=== PATIENT | female | born 1995 | race Caucasian/White ===

== ENCOUNTER 2017-09-22 13:23 | Emergency (ER) | payer SELFPAY ==
[~2017-09-22] VITALS: Ht 160 cm; Wt 77.3 kg
[~2017-09-22 13:23] MED LIST: TOPI100 PO
[2017-09-22] MEDS ORDERED: SODIUM CHLOR 0.9% 1000 ML INJ 1,000 ML IV ONE (15:09)
[2017-09-22 15:12] VITALS: BP 118/65; PULSE 71; RESP 18; TEMP 97.9; O2SAT 98
--- NOTE | 2017-09-22 15:13 | PD ---
HPI Chief Complaint: Headache Time Seen by Provider: 15:05 Travel History International Travel<30 days: No Contact w/Intl Traveler<30days: No Traveled to known affect area: No History of Present Illness HPI 22-year-old female presents the emergency department with 3 day history of migraine symptoms. Patient states history of migraines in the past, for which she saw a neurologist and was taking Topamax that the milligrams twice a day. Patient states that she's not had insurance for some time she has not taken any meds other than [id number] ibuprofen and Tylenol without relief. Patient states her migraines are cyclic but did not seem to be related to her menstrual cycle. She denies fever, chills, or other symptoms. Pain today is 9 out of 10 on the right upper anterior head. She has photophobia and phonophobia currently. She has had nausea and vomiting last several days. She has no other symptoms. She is allergic to ceftriaxone. PFSH Past Medical History Diminished Hearing: No Genitourinary: Yes (hx of uti's) Immunizations Current: No ?: Not LMP: 09/15/2017 Menopausal: No : 0 Past Surgical History Other Surgery: Yes (WISDOM TEETH) Social History Alcohol Use: No Tobacco Use: No Substance Use: No Allergies-Medications (Allergen,Severity, Reaction): Coded Allergies: ceftriaxone (Unverified Allergy, Severe, hives all over, 05/05/17) Reported Meds & Prescriptions Reported Meds & Active Scripts Active Reported Topamax (Topiramate) 100 Mg Tab 100 Mg PO DAILY Review of Systems Except as stated in HPI: all other systems reviewed are Neg General / Constitutional: No: Fever Eyes: Positive: Photophobia, No: Diploplia, Blurred Vision, Drainage, Redness, Foreign Body Sensation, Pain, Tearing, Blind Spots, Visual changes, Blindness HENT: Positive: Headaches, No: Vertigo, Lightheadedness, Sore Throat, Rhinitis , Rhinorrhea, Congestion, Nosebleed, Neck Stiffness, Neck Pain, Dental Difficulties, Earache Cardiovascular: No: Chest Pain or Discomfort Respiratory: No: Shortness of Breath Gastrointestinal: Positive: Nausea, Vomiting, No: Diarrhea, Abdominal Pain Genitourinary: No: Dysuria Musculoskeletal: No: Pain Skin: No Rash Neurologic: No: Weakness Psychiatric: No: Depression Endocrine: No: Polydipsia Hematologic/Lymphatic: No: Easy Bruising Physical Exam Narrative GENERAL: Patient appears in mild distress. SKIN: Warm and dry. Normal color. Normal turgor. HEAD: Atraumatic. Normocephalic. No reproducible sinus tenderness at this time. EYES: Pupils equal and round. No scleral icterus. No injection or drainage. ENT: No nasal bleeding or discharge. Mucous membranes pink and moist. TMs are clear bilaterally. Pharynx is clear. Airway is patent. NECK: Trachea midline. Supple and nontender. CARDIOVASCULAR: Regular rate and rhythm. RESPIRATORY: No accessory muscle use. Clear to auscultation. Breath sounds equal bilaterally. GASTROINTESTINAL: Abdomen soft, non-tender, nondistended. Hepatic and splenic margins not palpable. MUSCULOSKELETAL: Extremities without clubbing, cyanosis, or edema. No obvious deformities. NEUROLOGICAL: Awake and alert. No obvious cranial nerve deficits. Motor grossly within normal limits. Five out of 5 muscle strength in the arms and legs. Normal speech. PSYCHIATRIC: Appropriate mood and affect; insight and judgment normal. Data Data Last Documented VS Vital Signs Date Time Temp Pulse Resp B/P (MAP) Pulse Ox O2 Delivery O2 Flow Rate FiO2 09/22/17 15:44 98 Room Air 09/22/17 15:12 97.9 71 18 Orders Orders Ecg Monitoring (09/22/17 15:09) Iv Access Insert/Monitor (09/22/17 15:09) Oximetry (09/22/17 15:09) Sodium Chloride 0.9% Flush (Ns Flush) (09/22/17 15:15) Ketorolac Inj (Toradol Inj) (09/22/17 15:15) Prochlorperazine Inj (Compazine Inj) (09/22/17 15:15) Sodium Chlor 0.9% 1000 Ml Inj (Ns 1000 M (09/22/17 15:09) Diphenhydramine Inj (Benadryl Inj) (09/22/17 15:15) MDM Medical Decision Making Medical Screen Exam Complete: Yes Emergency Medical Condition: Yes Medical Record Reviewed: Yes Differential Diagnosis Migraine headache. Headache. Nausea. Narrative Course Patient is felt to be medically stable at time of exam. Radiographic imaging is not felt warranted based on my history and physical. IV access is obtained patient is given 30 mg Toradol IV as well as 25 mg Benadryl IV, and 5 mg Compazine IV. Patient is given 1000 mL normal saline bolus. Patient is improved after the above treatment plan. Patient is given a prescription for topiramate 50 mg twice a day #60. Patient also given Zofran 4 mg every 6 hours when necessary #12. Patient follow with [facility] for further evaluation and treatment as needed. Diagnosis Primary Impression: Migraine Qualified Codes: G43.C0 - Periodic headache syndromes in child or adult, not intractable Referrals: [facility] Patient Instructions: Acute Headache (ED), General Instructions Additional Instructions: Radiographic imaging is not felt warranted based on my history and physical. IV access is obtained patient is given 30 mg Toradol IV as well as 25 mg Benadryl IV, and 5 mg Compazine IV. Patient is given 1000 mL normal saline bolus. Patient is improved after the above treatment plan. Patient is given a prescription for topiramate 50 mg twice a day #60. Patient also given Zofran 4 mg every 6 hours when necessary #12. Patient follow with [place] [facility] for further evaluation and treatment as needed. Med/Other Pt SpecificInfo: Prescription(s) given Scripts Ondansetron (Zofran) 4 Mg Tab 4 MG PO Q6HR Y for NAUSEA OR VOMITING, #12 TAB 0 Refills Prov: Nunu Shay MD 09/22/17 Topiramate (Topiramate) 50 Mg Tab 50 MG PO BID for Control Seizures, #60 TAB 0 Refills Prov: Nunu Shay MD 09/22/17 Disposition: 01 DISCHARGE HOME Condition: Stable Lucio Mooney Sep 22, 2017 15:13
[2017-09-22] MEDS ORDERED: diphenhydrAMINE HCL 50 MG/ML VIAL IV PUSH ONE (15:15)
[2017-09-22] MEDS ORDERED: SODIUM CHLORIDE 0.9% FLUSH 10 ML FLUSH IVF PRN (15:15)
[2017-09-22] MEDS ORDERED: PROCHLORPERAZINE INJ 10 MG/2 ML VIAL IVP ONE (15:15)
[2017-09-22] MEDS ORDERED: KETOROLAC TROMETHAMINE 30 MG/ML (IVP) VIAL IVP ONE (15:15)
[2017-09-22 15:44] VITALS: O2SAT 98
[2017-09-22] MEDS ORDERED: TOPI50TA7 PO (15:51)
[2017-09-22] MEDS ORDERED: ZOFR4TAB PO (15:51)
--- NOTE | 2017-09-22 16:32 | PD ---
Data Data Last Documented VS Vital Signs Date Time Temp Pulse Resp B/P (MAP) Pulse Ox O2 Delivery O2 Flow Rate FiO2 09/22/17 15:44 98 Room Air 09/22/17 15:12 97.9 71 18 Orders Orders Ecg Monitoring (09/22/17 15:09) Iv Access Insert/Monitor (09/22/17 15:09) Oximetry (09/22/17 15:09) Sodium Chloride 0.9% Flush (Ns Flush) (09/22/17 15:15) Ketorolac Inj (Toradol Inj) (09/22/17 15:15) Prochlorperazine Inj (Compazine Inj) (09/22/17 15:15) Sodium Chlor 0.9% 1000 Ml Inj (Ns 1000 M (09/22/17 15:09) Diphenhydramine Inj (Benadryl Inj) (09/22/17 15:15) Ed Discharge Order (09/22/17 15:56) MDM Supervised Visit with [facility]: Yes Narrative Course The history, exam, and medical decision-making in the associated midlevel provider note were completed with my assistance. I reviewed and agree with the findings presented. I attest that I had a [id number] encounter with the patient on the same day, and personally performed and documented my assessment and findings in the medical record. *My assessment and Findings: This is a 22-year-old female who was a history of migraines in the past 2 presents to the emergency department with a headache similar to prior. She was placed on a monitor and an IV was established. She was given Toradol and Compazine and feels much better. I think patient can be discharged home and I don't think she requires imaging. Diagnosis Primary Impression: Migraine Qualified Codes: G43.C0 - Periodic headache syndromes in child or adult, not intractable Referrals: [facility] Patient Instructions: General Instructions, Acute Headache (ED) Additional Instruction: Radiographic imaging is not felt warranted based on my history and physical. IV access is obtained patient is given 30 mg Toradol IV as well as 25 mg Benadryl IV, and 5 mg Compazine IV. Patient is given 1000 mL normal saline bolus. Patient is improved after the above treatment plan. Patient is given a prescription for topiramate 50 mg twice a day #60. Patient also given Zofran 4 mg every 6 hours when necessary #12. Patient follow with [facility] for further evaluation and treatment as needed. Scripts Ondansetron (Zofran) 4 Mg Tab 4 MG PO Q6HR Y for NAUSEA OR VOMITING, #12 TAB 0 Refills Prov: Nunu Shay MD 09/22/17 Topiramate (Topiramate) 50 Mg Tab 50 MG PO BID for Control Seizures, #60 TAB 0 Refills Prov: Nunu Shay MD 09/22/17 Disposition: 01 DISCHARGE HOME Condition: Stable Nunu Shay MD Sep 22, 2017 16:32
== END 2017-09-22 16:45 | disposition home or self-care (01) ==
LOC: NEPD 13:23
DX: G43.C0 Periodic headache syndromes in child or adult, not intractable (principal)
CPT/HCPCS: 96374; 96375; 99284; J0780; J1200; J1885; J7030

== ENCOUNTER 2018-01-29 09:27 | Emergency (ER) | payer SELFPAY ==
[~2018-01-29] VITALS: Ht 160 cm; Wt 81.0 kg
[~2018-01-29 09:27] MED LIST changes: +TOPI50TA7 PO; +ZOFR4TAB PO
[2018-01-29 09:45] VITALS: BP 117/57; PULSE 67; RESP 16; TEMP 98.5; O2SAT 99
[2018-01-29] MEDS ORDERED: PERM5CRE TOPICAL (10:22)
[2018-01-29] MEDS ORDERED: MEDR8TAB PO (10:22)
--- NOTE | 2018-01-29 10:28 | PD ---
HPI Chief Complaint: Skin Problem Time Seen by Provider: 10:12 Travel History International Travel<30 days: No Contact w/Intl Traveler<30days: No Traveled to known affect area: No History of Present Illness HPI 22-year-old female presents emergency department for evaluation of a rash that is been present for approximately 1 week. Patient states that the rash initially showed up as a small red bump on her abdomen and throughout the weeks prior to the right forearm and today spread to the left arm. Patient notes that she has the rash extending down to her legs and feet as well. Her grandmother noticed a lesion on her neck today she decided to come in for evaluation. She denies any new soaps, talked contacts, lotions. Denies any recent travel or hotel stays. Says they are not painful but occasionally pruritic. Denies fevers or chills. She has no other complaints other than this rash. Immunizations are up-to-date. PFSH Past Medical History Diminished Hearing: No Genitourinary: Yes (hx of uti's) Immunizations Current: No Migraines: Yes Seizures: Yes (HX) Influenza Vaccination: No ?: Not LMP: LAST WEEK Menopausal: No : 0 Past Surgical History Surgical History: No Previous Surgery Other Surgery: Yes (WISDOM TEETH) Social History Alcohol Use: No Tobacco Use: No Substance Use: No Allergies-Medications (Allergen,Severity, Reaction): Coded Allergies: ceftriaxone (Unverified Allergy, Severe, hives all over, 01/29/18) Reported Meds & Prescriptions Reported Meds & Active Scripts Active Medrol (Methylprednisolone) 8 Mg Tab 8 Mg PO DAILY 5 Days Permethrin Topical 5% (Permethrin) 5% Cream 1 Applic TOPICAL ONCE Apply head to toe. Leave on for 8-10 hours. Wash off. May repeat in 7-14 days if rash persists. Topiramate 50 Mg Tab 50 Mg PO BID Review of Systems Except as stated in HPI: all other systems reviewed are Neg Physical Exam Narrative GENERAL: Well-nourished, well-developed patient. SKIN: Focused skin assessment warm/dry. Scattered small 3-7 mm round papules from neck to toes. Less than 30 papules present. Left interdigital spaces with probable burrows. HEAD: Normocephalic. EYES: No scleral icterus. No injection or drainage. NECK: Supple, trachea midline. No JVD or lymphadenopathy. CARDIOVASCULAR: Regular rate and rhythm without murmurs, gallops, or rubs. RESPIRATORY: Breath sounds equal bilaterally. No accessory muscle use. MUSCULOSKELETAL: No cyanosis, or edema. BACK: Nontender without obvious deformity. No CVA tenderness. Data Data Last Documented VS Vital Signs Date Time Temp Pulse Resp B/P (MAP) Pulse Ox O2 Delivery O2 Flow Rate FiO2 01/29/18 09:45 98.5 67 16 117/57 (77) 99 MDM Medical Decision Making Medical Screen Exam Complete: Yes Emergency Medical Condition: Yes Differential Diagnosis Contact dermatitis, scabies, bedbugs, viral exanthem Narrative Course 22-year-old female presents emergency department for evaluation of a rash that is been present for approximately 1 week. Patient states that the rash initially showed up as a small red bump on her abdomen and throughout the weeks prior to the right forearm and today spread to the left arm. Patient notes that she has the rash extending down to her legs and feet as well. Her grandmother noticed a lesion on her neck today she decided to come in for evaluation. She denies any new soaps, talked contacts, lotions. Denies any recent travel or hotel stays. Says they are not painful but occasionally pruritic. Denies fevers or chills. She has no other complaints other than this rash. Immunizations are up-to-date. Vital signs are stable. Physical exam findings consistent with scabies versus bedbugs versus contact dermatitis versus urticaria. She denies any contacts with others with the same rash. The rash around her waist appears urticarial in nature, the rash on her hands and arms are more consistent with bites. Patient will receive permethrin cream and Medrol for the skin condition. Reassured patient. She is advised to follow-up with [facility] for further evaluation and treatment. Advised to return for worsening or persistent symptoms. Diagnosis Primary Impression: Skin rash Referrals: [employer] Attorney Primary Care Physician Additional Instructions: Take medications as prescribed. I recommend follow-up with a primary care physician or [facility] if the rash does not improve. If the rash worsens or persist return to the emergency department. Scripts Methylprednisolone (Medrol) 8 Mg Tab 8 MG PO DAILY for 5 Days, #5 TAB 0 Refills Prov: Rj Feliciano MD 01/29/18 Permethrin Topical 5% (Permethrin Topical 5%) 5% Cream 1 APPLIC TOPICAL ONCE for Rash, #1 TUBE 0 Refills Apply head to toe. Leave on for 8-10 hours. Wash off. May repeat in 7-14 days if rash persists. Prov: Rj Feliciano MD 01/29/18 Disposition: 01 DISCHARGE HOME Condition: Stable Yajaira Huntley January 29, 2018 10:28
== END 2018-01-29 10:35 | disposition home or self-care (01) ==
LOC: PHEFT 09:27
DX: R21 Rash and other nonspecific skin eruption (principal)
CPT/HCPCS: 99283